=== PATIENT | male | born 1985 | race Caucasian/White ===

== ENCOUNTER 2017-12-04 09:02 | Emergency (ER) | payer SELFPAY ==
[2017-12-04 09:08] VITALS: BP 120/65
[2017-12-04] MEDS ORDERED: IPRATROPIUM/ALBUTEROL 0.5-2.5 MG/3 ML AMPUL NEB ONE (09:11)
[2017-12-04] MEDS ORDERED: ACETAMINOPHEN 325 MG TABLET PO ONE ×2 (09:11→09:12)
[2017-12-04] MEDS ORDERED: PREDNISONE 20 MG TABLET PO ONE (09:11)
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
--- NOTE | 2017-12-04 10:18 | RADIOLOGY REPORT (SQ) ---
EXAM DESCRIPTION: CHEST 2 VIEWS COMPLETED DATE/TIME: 12/04/2017 9:58 am REASON FOR STUDY: cough COMPARISON: None. TECHNIQUE: Frontal and lateral radiographic views of the chest acquired. NUMBER OF VIEWS: Two view. LIMITATIONS: None. FINDINGS: LUNGS AND PLEURA: No opacities, masses or pneumothorax. No pleural effusion. MEDIASTINUM AND HILAR STRUCTURES: No masses or contour abnormalities. HEART AND VASCULAR STRUCTURES: Heart normal size. No evidence for failure. BONES: No acute findings. HARDWARE: None in the chest. OTHER: No other significant finding. IMPRESSION: NO SIGNIFICANT RADIOGRAPHIC FINDING IN THE CHEST. TECHNICAL DOCUMENTATION: JOB ID: [id number] [employer]- All Rights Reserved Reading location - IP/workstation name: [email or web address]
[2017-12-04] MEDS ORDERED: ALBUTEROL SULFATE 0.083% NEB 2.5 MG/3 ML AMPUL NEB ONE (10:38)
== END 2017-12-04 10:54 | disposition home or self-care (01) ==
LOC: ER 09:02
DX: J45.909 Unspecified asthma, uncomplicated (principal); J02.9 Acute pharyngitis, unspecified; R50.9 Fever, unspecified; R05 Cough; K13.0 Diseases of lips; F32.9 Major depressive disorder, single episode, unspecified; J34.89 Other specified disorders of nose and nasal sinuses; Z87.891 Personal history of nicotine dependence
CPT/HCPCS: 94640; 99283; 87070; 87880; 71046; J7512; J7620